=== PATIENT | female | born 1975 | race Caucasian/White ===

== ENCOUNTER → 2024-12-29 | Outpatient (REF) | payer OTHER ==
[~2024-12-29] MED LIST: BUTALB-ACETAMI1 EACH PO; CHLORTABS PO; CLONAZEPAM1 MG PO; CYMBALTA30 MG PO; HYDROCODONE-AP1 EA23 PO; IMITREX; IOPAMIDOL 370 MG/ML 100 ML INFUS..BTL INJ ONE; IRON325 MG PO; KLONOPIN1 MG; LEVAQUIN500 MG PO; METOPROLOL; METOPROLOL SUCC50 MG PO; METOPROLOL TARTRATE 25 MG TAB ONE; METOPROLOL TARTRATE INJ 1 MG/ML VIAL ONE; NITROGLYCERIN 0.4 MG SUBL ONE; NORCO 7.5-3251 EACH PO; ORTHO D PO; POTASSIUM CITR10 MEQ PO; SIMVASTATIN40 MG PO; SODIUM CHLORIDE 0.9% 100 ML ONE; SODIUM CHLORIDE 0.9% 250ML 250 ML ONE; SUMATRIPTAN SU100 MG PO; TIZANIDINE HCL4 M1 PO; TOPIRAMATE50 MG PO; TYLENOL # 31 EA PO; VALACYCLOVIR1000 MG PO; Z.0.BENICAR20 MG PO; Z.0.CELEXA20 MG PO; Z.0.DEPO-PROVE150 MG IM; Z.0.RESTORIL30 MG PO; Z.0.XANAX0.5 MG PO; ZOCOR40 MG
[2024-12-29 09:59] LABS: EST GLOMERULAR FILTRATION RATE 72.0 ML/MIN (>=60)
== END ==
LOC: CT 08:43
PROVIDERS: ATTEND Internal Medicine Cardiovascular Disease
DX: I20.9 Angina pectoris, unspecified (principal); R94.39 Abnormal result of other cardiovascular function study
CPT/HCPCS: 36415; 75574; 82565; 84520; J7050 ×2; Q9967